=== PATIENT | male | born 1960 | race Caucasian/White ===

== ENCOUNTER 2017-04-18 22:16 | Observation (INO) | payer BC, OTHER ==
[~2017-04-18] VITALS: Ht 180.3 cm; Wt 75.0 kg
[2017-04-18 22:28] VITALS: BP 137/76; PULSE 107; RESP 18; TEMP 100; O2SAT 99
--- NOTE | 2017-04-18 22:29 | PD ---
HPI Chief Complaint: abdominal pain and fevers Time Seen by Provider: 22:23 Travel History International Travel<30 days: No Contact w/Intl Traveler<30days: No Traveled to known affect area: No History of Present Illness HPI 57-year-old male patient with 2 week history of a left scrotal cyst currently being evaluated by urology, presents to the ER today with a one-week history of fevers, body aches, not feeling well, and started having right sided abdominal discomfort with radiation down to the right scrotum. He denies any dysuria, vomiting, diarrhea, chest pains, shortness of breath, or other symptoms. He apparently had talked to his primary care physician and urologist and both his physicians do not think that this is related to the scrotal cyst. They think that he may have a viral syndrome or influenza. Modifying Factors: None Associated Signs & Symptoms: Cough, not feeling well, fevers, right sided abdominal pains with radiation to her right scrotum, body aches Risk Factors: Scrotal cyst recently diagnosed [facility] Social History Tobacco Use: No Allergies-Medications (Allergen,Severity, Reaction): Coded Allergies: No Known Allergies (Unverified , 04/18/17) Reported Meds & Prescriptions Reported Meds & Active Scripts Active Reported Doxycycline 40 Mg Cap 40 Mg PO DAILY Review of Systems Except as stated in HPI: all other systems reviewed are Neg Physical Exam Narrative GENERAL: Well-developed middle age white male patient currently in mild distress. Awake and oriented 3. SKIN: Focused skin assessment warm/dry. HEAD: Atraumatic. Normocephalic. EYES: Pupils equal and round. No scleral icterus. No injection or drainage. ENT: No nasal bleeding or discharge. Mucous membranes pink and moist. NECK: Trachea midline. No JVD. Supple. CARDIOVASCULAR: Regular rate and rhythm. No murmur appreciated. RESPIRATORY: No accessory muscle use. Clear to auscultation. Breath sounds equal bilaterally. GASTROINTESTINAL: Abdomen soft, mild right upper quadrant tenderness without guarding or rebound, nondistended. Hepatic and splenic margins not palpable. GENITOURINARY: Circumcised. Testes descended bilaterally without evidence of rotation. No lesions or erythema. No urethral discharge. MUSCULOSKELETAL: No obvious deformities. No clubbing. No cyanosis. No edema. NEUROLOGICAL: Awake and alert. No obvious cranial nerve deficits. Motor grossly within normal limits. Normal speech. PSYCHIATRIC: Appropriate mood and affect; insight and judgment normal. Data Data Last Documented VS Vital Signs Date Time Temp Pulse Resp B/P (MAP) Pulse Ox O2 Delivery O2 Flow Rate FiO2 04/18/17 23:49 80 18 119/70 (86) 99 04/18/17 22:28 100.0 Orders Orders Sepsis Workup Initiated (04/18/17 ) Complete Blood Count With Diff (04/18/17 22:23) Comprehensive Metabolic Panel (04/18/17 22:23) Lactic Acid Sepsis Protocol (04/18/17 22:23) Lipase (04/18/17 22:23) Urinalysis - C+S If Indicated (04/18/17 22:23) Influenzae A/B Antigen (04/18/17 22:23) Blood Culture (04/18/17 22:23) Chest, Single Ap (04/18/17 22:23) Blood Glucose (04/18/17 22:23) Ecg Monitoring (04/18/17 22:23) Iv Access Insert/Monitor (04/18/17 22:23) Oximetry (04/18/17 22:23) Oxygen Administration (04/18/17 22:23) Ct Abd/Pel W Iv Contrast(Rout) (04/18/17 22:23) Iohexol 350 Inj (Omnipaque 350 Inj) (04/18/17 23:50) Piperacil-Tazo 4.5 Gm Premix (Zosyn 4.5 (04/19/17 00:38) Admit Order (Ed Use Only) (04/19/17 00:47) Labs Laboratory Tests Test 04/18/17 22:40 White Blood Count 13.1 TH/MM3 Red Blood Count 3.47 MIL/MM3 Hemoglobin 11.0 GM/DL Hematocrit 33.5 % Mean Corpuscular Volume 96.5 FL Mean Corpuscular Hemoglobin 31.6 PG Mean Corpuscular Hemoglobin Concent 32.8 % Red Cell Distribution Width 11.8 % Platelet Count 464 TH/MM3 Mean Platelet Volume 8.3 FL Neutrophils (%) (Auto) 79.0 % Lymphocytes (%) (Auto) 9.4 % Monocytes (%) (Auto) 9.8 % Eosinophils (%) (Auto) 1.0 % Basophils (%) (Auto) 0.8 % Neutrophils # (Auto) 10.4 TH/MM3 Lymphocytes # (Auto) 1.2 TH/MM3 Monocytes # (Auto) 1.3 TH/MM3 Eosinophils # (Auto) 0.1 TH/MM3 Basophils # (Auto) 0.1 TH/MM3 CBC Comment AUTO DIFF Differential Comment AUTO DIFF CONFIRMED Platelet Estimate NORMAL Platelet Morphology Comment NORMAL Red Cell Morphology Comment NORMAL Urine Color STRAW Urine Turbidity CLEAR Urine pH 6.5 Urine Specific [place] 1.010 Urine Protein NEG mg/dL Urine Glucose (UA) NEG mg/dL Urine Ketones NEG mg/dL Urine Occult Blood TRACE Urine Nitrite NEG Urine Bilirubin NEG Urine Leukocyte Esterase NEG Urine RBC 0-3 /hpf Urine WBC 0-2 /hpf Urine Squamous Epithelial Cells 0-5 /hpf Urine Bacteria NONE /hpf Microscopic Urinalysis Comment CULT NOT INDICATED Blood Urea Nitrogen 16 MG/DL Creatinine 0.86 MG/DL Random Glucose 125 MG/DL Total Protein 7.6 GM/DL Albumin 2.1 GM/DL Calcium Level 8.0 MG/DL Alkaline Phosphatase 70 U/L Aspartate Amino Transf (AST/SGOT) 44 U/L Alanine Aminotransferase (ALT/SGPT) 27 U/L Total Bilirubin 0.5 MG/DL Sodium Level 135 MEQ/L Potassium Level 3.7 MEQ/L Chloride Level 101 MEQ/L Carbon Dioxide Level 25.8 MEQ/L Anion Gap 8 MEQ/L Estimat Glomerular Filtration Rate 91 ML/MIN Lactic Acid Level 0.8 mmol/L Lipase 85 U/L [facility] Medical Decision Making Medical Screen Exam Complete: Yes Emergency Medical Condition: Yes Medical Record Reviewed: Yes Interpretation(s) Laboratory Tests Test 04/18/17 22:40 White Blood Count 13.1 TH/MM3 (4.0-11.0) Red Blood Count 3.47 MIL/MM3 (4.50-5.90) Hemoglobin 11.0 GM/DL (13.0-17.0) Hematocrit 33.5 % (39.0-51.0) Platelet Count 464 TH/MM3 (150-450) Neutrophils (%) (Auto) 79.0 % (16.0-70.0) Monocytes (%) (Auto) 9.8 % (0.0-8.0) Neutrophils # (Auto) 10.4 TH/MM3 (1.8-7.7) Monocytes # (Auto) 1.3 TH/MM3 (0-0.9) Random Glucose 125 MG/DL (74-106) Albumin 2.1 GM/DL (3.4-5.0) Calcium Level 8.0 MG/DL (8.5-10.1) Aspartate Amino Transf (AST/SGOT) 44 U/L (15-37) Sodium Level 135 MEQ/L (136-145) Last 24 hours Impressions Chest X-Ray 04/18/172222 Signed Impressions: Service Date/Time: Tuesday, April 18, 2017 22:42 - CONCLUSION: 1. No active disease. Bob Recinos MD Abdomen/Pelvis CT 04/18/172222 Signed Impressions: Service Date/Time: Tuesday, April 18, 2017 23:53 - CONCLUSION: 1. No acute abnormality seen. 2. Scattered colonic diverticula without inflammatory change. 3. Large left renal cyst. 4. Mild perinephric stranding seen bilaterally a more prominent on the left. No hydronephrosis or acute changes are seen in the kidneys. 5. Multiple small subcentimeter hypodensities seen throughout the liver. These are nonspecific. They likely represent cysts or hemangiomas but are nonspecific. Michael Khan MD Differential Diagnosis Viral syndrome versus sepsis versus scrotal abscess versus UTI Narrative Course Lab work shows leukocytosis. UA did not show any signs of UTI. CAT scan however does show some left-sided perinephric stranding of uncertain etiology. I do not see an obvious cause of his current leukocytosis. Lactate is unremarkable. His influenza test is negative. He apparently has been on doxycycline for the past week already without improvement. At this point, concerned of leukocytosis, my plan would be to admit him as an observation. Zosyn was initiated in the ER and cultures have been drawn. Case was discussed with Dr. Starks for admission. Diagnosis Primary Impression: Fever Additional Impression: Sepsis Admitting Information Admitting Physician Requests: Admit Naman Chavarria MD Apr 18, 2017 22:29
[2017-04-18] MEDS ORDERED: DOXY1CAP74 PO (23:01)
--- NOTE | 2017-04-18 23:02 | RADRPT ---
EXAM DATE/TIME: 04/18/2017 22:42 [facility] COMPARISON: No previous studies available for comparison. INDICATIONS : Fever. MEDICAL HISTORY : None. SURGICAL HISTORY : None. ENCOUNTER: Initial ACUITY: 1 day PAIN SCORE: 5/10 LOCATION: Bilateral chest FINDINGS: A single view of the chest demonstrates the lungs to be symmetrically aerated without evidence of mas s, infiltrate or effusion. Probable calcified granuloma right upper lobe. The cardiomediastinal cont ours are unremarkable. Osseous structures are intact. CONCLUSION: 1. No active disease. Bob Recinos MD on April 18, 2017 at 22:57 Board Certified Radiologist. This report was verified electronically.
[2017-04-18 23:03] LABS: BILIRUBIN, URINE NEG (NEG); BLOOD, URINE TRACE (NEG); GLUCOSE,URINE NEG (NEG); KETONE, URINE NEG (NEG); NITRITE,URINE NEG (NEG); PH, URINE 6.5 (5.0-8.5); URINE LEUKOCYTE ESTERASE NEG (NEG)
[2017-04-18 23:05] LABS: AUTOMATED NEUTROPHIL # 10.4 TH/MM3 (1.8-7.7); BASOPHIL # 0.1 TH/MM3 (0-0.2); BASOPHIL % 0.8 % (0.0-2.0); EOSINOPHIL # 0.1 TH/MM3 (0-0.4); HEMATOCRIT 33.5 % (39.0-51.0); LYMPH % 9.4 % (9.0-44.0); LYMPHOCYTE # 1.2 TH/MM3 (1.0-4.8); MEAN CELL VOLUME 96.5 FL (80.0-100.0); MEAN CORPUSCULAR HEMOGLOBIN 31.6 PG (27.0-34.0); MEAN CORPUSCULAR HGB CONC 32.8 % (32.0-36.0); MEAN PLATELET VOLUME 8.3 FL (7.0-11.0); MONO % 9.8 % (0.0-8.0); MONOCYTE # 1.3 TH/MM3 (0-0.9); PLATELET COUNT 464 TH/MM3 (150-450); RED BLOOD COUNT 3.47 MIL/MM3 (4.50-5.90); RED CELL DISTRIBUTION WIDTH 11.8 % (11.6-17.2); WHITE BLOOD COUNT 13.1 TH/MM3 (4.0-11.0)
[2017-04-18 23:12] LABS: CHLORIDE 101 MEQ/L (98-107); RBC, URINE 0-3 /hpf (0-3); SODIUM (NA) 135 MEQ/L (136-145); SQUAMOUS EPITHELIAL CELL URINE 0-5 /hpf (0-5); URINE COLOR STRAW (YELLW/STRAW); WBC, URINE 0-2 /hpf (0-5)
[2017-04-18 23:15] LABS: ALBUMIN 2.1 GM/DL (3.4-5.0); BICARBONATE 25.8 MEQ/L (21.0-32.0); GLUCOSE,RANDOM 125 MG/DL (74-106)
[2017-04-18 23:16] LABS: BLOOD UREA NITROGEN 16 MG/DL (7-18)
[2017-04-18 23:18] LABS: ALT (GPT) 27 U/L (12-78); AST (GOT) 44 U/L (15-37); CREATININE 0.86 MG/DL (0.60-1.30); GLOMERULAR FILTRATION RATE 91 ML/MIN (>89)
[2017-04-18 23:20] LABS: TOTAL BILIRUBIN ADULT 0.5 MG/DL (0.2-1.0); TOTAL PROTEIN 7.6 GM/DL (6.4-8.2)
[2017-04-18 23:21] LABS: ALKALINE PHOSPHATASE 70 U/L (45-117)
[2017-04-18 23:49] VITALS: BP 119/70; PULSE 80; RESP 18; O2SAT 99
[2017-04-18] MEDS ORDERED: IOHEXOL 350 MG/ML 10 ML VIAL (for RAD DIAG) IVCONTRAST ONE (23:50)
--- NOTE | 2017-04-19 00:26 | RADRPT ---
EXAM DATE/TIME: 04/18/2017 23:53 [facility] COMPARISON: No previous studies available for comparison. INDICATIONS : Right lower abdominal and groin pain, fever IV CONTRAST: 96 cc Omnipaque 350 (iohexol) IV ORAL CONTRAST: No oral contrast ingested. RADIATION DOSE: 7.39 CTDIvol (mGy) MEDICAL HISTORY : None SURGICAL HISTORY : Cholecystectomy. Inguinal hernia repair. ENCOUNTER: Initial ACUITY: 1 day PAIN SCALE: 8/10 LOCATION: pelvis TECHNIQUE: Volumetric scanning of the abdomen and pelvis was performed. Using automated exposure control and ad justment of the mA and/or kV according to patient size, radiation dose was kept as low as reasonably achievable to obtain optimal diagnostic quality images. DICOM format image data is available electro nically for review and comparison. FINDINGS: LOWER LUNGS: The visualized lower lungs are clear. LIVER: There are several small subcentimeter hypodensities scattered throughout the liver. The gallbladder i s not seen. SPLEEN: Normal size without lesion. PANCREAS: Within normal limits. KIDNEYS: There is a 11.5 cm cyst in the superior aspect of the left kidney. There is also a smaller 0.6 cm cys t in the lateral mid left kidney. No hydronephrosis is seen on either side. There is some mild perine phric stranding seen on the left side and minimal perinephric stranding at the inferior right kidney. ADRENAL GLANDS: Within normal limits. VASCULAR: There is no aortic aneurysm. BOWEL/MESENTERY: The appendix appears normal. There are scattered colonic diverticula especially in the sigmoid region . ABDOMINAL WALL: Within normal limits. RETROPERITONEUM: There is no lymphadenopathy. BLADDER: No wall thickening or mass. REPRODUCTIVE: Within normal limits. INGUINAL: There is no lymphadenopathy or hernia. MUSCULOSKELETAL: Within normal limits for patient age. CONCLUSION: 1. No acute abnormality seen. 2. Scattered colonic diverticula without inflammatory change. 3. Large left renal cyst. 4. Mild perinephric stranding seen bilaterally a more prominent on the left. No hydronephrosis or acu te changes are seen in the kidneys. 5. Multiple small subcentimeter hypodensities seen throughout the liver. These are nonspecific. They likely represent cysts or hemangiomas but are nonspecific. Michael Khan MD on April 19, 2017 at 0:09 Board Certified Radiologist. This report was verified electronically.
[2017-04-19] MEDS ORDERED: PIPERACIL-TAZO 4.5 GM PREMIX 100 ML IV STA (00:38)
[2017-04-19 01:07] VITALS: BP 120/72; PULSE 78; RESP 17; TEMP 99.8; O2SAT 100
[2017-04-19] MEDS ORDERED: NALOXONE HCL 0.4 MG/ML AMP IV PUSH PRN (01:45)
[2017-04-19] MEDS ORDERED: SENNOSIDES 8.6 MG TAB PO PRN (01:45)
[2017-04-19] MEDS ORDERED: ONDANSETRON HCL 4 MG/2 ML VIAL IVP PRN (01:45)
[2017-04-19] MEDS ORDERED: MAGNESIUM HYDROXIDE SUSP 30 ML CUP PO PRN (01:45)
[2017-04-19] MEDS ORDERED: LACTULOSE SYRUP 20 GM/30 ML CUP PO PRN (01:45)
[2017-04-19] MEDS ORDERED: BISACODYL 10 MG SUPP RECTAL PRN (01:45)
[2017-04-19] MEDS ORDERED: SODIUM CHLORIDE 0.9% FLUSH 10 ML FLUSH IV FLUSH PRN (01:45)
[2017-04-19] MEDS: SODIUM CHLORIDE 0.9% FLUSH 10 ML FLUSH IV FLUSH SCH ×2 (01:52→21:44)
[2017-04-19] MEDS: SODIUM CHLOR 0.45% 1000 ML INJ 1,000 ML IV SCH ×2 (01:52→15:47)
[2017-04-19] MEDS: MORPHINE SULFATE 2 MG/ML INJ IV PUSH PRN ×3 (01:58→16:08)
[2017-04-19 02:00] VITALS: BP 116/81; PULSE 97; RESP 18; TEMP 101.3; O2SAT 97
[2017-04-19 08:00] VITALS: BP 116/72; PULSE 94; RESP 18; TEMP 101.4; O2SAT 96
[2017-04-19 08:09] LABS: AUTOMATED NEUTROPHIL # 8.5 TH/MM3 (1.8-7.7); BASOPHIL % 0.4 % (0.0-2.0); EOSINOPHIL # 0.2 TH/MM3 (0-0.4); EOSINOPHIL % 1.9 % (0.0-4.0); HEMATOCRIT 32.2 % (39.0-51.0); HEMOGLOBIN 10.8 GM/DL (13.0-17.0); LYMPH % 13.4 % (9.0-44.0); LYMPHOCYTE # 1.6 TH/MM3 (1.0-4.8); MEAN CELL VOLUME 97.1 FL (80.0-100.0); MEAN CORPUSCULAR HEMOGLOBIN 32.5 PG (27.0-34.0); MEAN CORPUSCULAR HGB CONC 33.5 % (32.0-36.0); MEAN PLATELET VOLUME 7.8 FL (7.0-11.0); MONO % 13.9 % (0.0-8.0); MONOCYTE # 1.7 TH/MM3 (0-0.9); NEUT % 70.4 % (16.0-70.0); PLATELET COUNT 460 TH/MM3 (150-450); RED BLOOD COUNT 3.31 MIL/MM3 (4.50-5.90)
--- NOTE | 2017-04-19 08:16 | RADRPT ---
EXAM DATE/TIME: 04/19/2017 07:18 [facility] COMPARISON: No previous studies available for comparison. INDICATIONS : Scrotal pain. MEDICAL HISTORY : Anxiety. Blood transfusion. SURGICAL HISTORY : Inguinal hernia repair. Cholecystectomy. ENCOUNTER: Initial ACUITY: 1 day PAIN SCORE: 1/10 LOCATION: Bilateral Scrotum. MEASUREMENTS: RIGHT TESTICLE: 4.5 x 3.2 x 2.8cm LEFT TESTICLE: 4.2 x 2.8 x 2.9cm FINDINGS: RIGHT TESTICLE: Homogeneous echotexture without intra or extratesticular mass. Blood flow is symmetric and within no rmal limits. No hydrocele or varicocele. Epididymis is within normal limits. LEFT TESTICLE: Homogeneous echotexture without intra or extratesticular mass. Blood flow is symmetric and within no rmal limits. No hydrocele or varicocele. The left epididymis appears mildly enlarged with respect to the right and demonstrates vascularity similar to the left testicle. There is a small left avascular appearing left testicular appendix and a small benign-appearing left epididymal head cyst. SCROTUM: Within normal limits. CONCLUSION: Findings within the left epididymis may reflect inflammation or infection. Correlate with the site of the patient's pain. There is a prior history of inguinal hernia repair, lobar, the side and timing o f the surgical repair are not noted. Findings within the epididymis could also be reactive if surgery is recent.. Shea Hernandez MD on April 19, 2017 at 8:08 Board Certified Radiologist. This report was verified electronically.
[2017-04-19 08:27] LABS: CHLORIDE 100 MEQ/L (98-107); SODIUM (NA) 136 MEQ/L (136-145)
[2017-04-19 08:32] LABS: ALBUMIN 2.1 GM/DL (3.4-5.0); BICARBONATE 27.6 MEQ/L (21.0-32.0); BLOOD UREA NITROGEN 13 MG/DL (7-18); CALCIUM 8.1 MG/DL (8.5-10.1); GLUCOSE,RANDOM 117 MG/DL (74-106)
[2017-04-19 08:35] LABS: ALT (GPT) 23 U/L (12-78); AST (GOT) 36 U/L (15-37); CREATININE 0.93 MG/DL (0.60-1.30); GLOMERULAR FILTRATION RATE 83 ML/MIN (>89)
[2017-04-19 08:37] LABS: TOTAL BILIRUBIN ADULT 0.9 MG/DL (0.2-1.0); TOTAL PROTEIN 7.5 GM/DL (6.4-8.2)
[2017-04-19 08:38] LABS: ALKALINE PHOSPHATASE 60 U/L (45-117)
[2017-04-19] MEDS: DOCUSATE SODIUM 50 MG/SENNA 8.6 MG TAB PO SCH ×2 (08:44→21:45)
[2017-04-19] MEDS: PIPERACIL-TAZO 3.375 GM PREMIX 50 ML IV SCH ×3 (09:12→21:44)
[2017-04-19 09:29] LABS: WESTERGREN SEDIMENTATION RATE GREATER THAN 140 mm/hr (0-20)
[2017-04-19 12:00] VITALS: BP 115/77; PULSE 81; RESP 16; TEMP 98; O2SAT 96
--- NOTE | 2017-04-19 12:34 | HHI.HP ---
History of Present Illness Service [facility] Primary Care Physician Selvin Lua, DO Admission Diagnosis sepsis/perinephric stranding Diagnoses: (1) Epididymal cyst Diagnosis: Principal (2) Sepsis Diagnosis: Principal (3) Fever Diagnosis: Principal History of Present Illness Patient presented for eval of fever for several days. He also is being followed by urology for epididmal cyst. He C/O H/A for several days as well. Review of Systems Constitutional: COMPLAINS OF: Fever Endocrine: DENIES: Heat/cold intolerance, Polydipsia, Polyuria, Polyphagia Eyes: DENIES: Blurred vision, Diplopia, Eye inflammation, Eye pain, Vision loss , Photosensitivity, Double Vision Ears, nose, mouth, throat: DENIES: Tinnitus, Hearing loss, Vertigo, Nasal discharge, Oral lesions, Throat pain, Hoarseness, Ear Pain, Running Nose, Epistaxis, Sinus Pain, Toothache, Odynophagia Respiratory: DENIES: Apneas, Cough, Snoring, Wheezing, Hemoptysis, Sputum production, Shortness of breath Cardiovascular: DENIES: Chest pain, Palpitations, Syncope, Dyspnea on Exertion , PND, Lower Extremity Edema, Orthopnea, Claudication Gastrointestinal: DENIES: Abdominal pain, Black stools, Bloody stools, Constipation, Diarrhea, Nausea, Vomiting, Difficulty Swallowing, Anorexia Genitourinary: DENIES: Sexual dysfunction, Urinary frequency, Urinary incontinence, Urgency, Hematuria, Dysuria, Nocturia, Penile Discharge, Testicular Pain, Testicular Swelling Musculoskeletal: DENIES: Joint pain, Muscle aches, Stiffness, Joint Swelling, Back pain, Neck pain Integumentary: DENIES: Abnormal pigmentation, Nail changes, Pruritus, Rash Hematologic/lymphatic: DENIES: Bruising, Lymphadenopathy Immunologic/allergic: DENIES: Eczema, Urticaria Neurologic: COMPLAINS OF: Headache Psychiatric: DENIES: Anxiety, Confusion, Mood changes, Depression, Hallucinations, Agitation, Suicidal Ideation, Homicidal Ideation, Delusions Past Family Social History Allergies: Coded Allergies: No Known Allergies (Unverified , 04/18/17) Past Medical History Epididmal cyst being monitored by Urology Past Surgical History Inguinal herniorrhaphy Reported Medications Current Medications Medications (Trade) Dose Ordered Sig/Vito Route Start Time Stop Time Status Last Admin Piperacillin Sod/ Tazobactam Sod 50 ml @ 100 mls/hr Q6H IV 04/19/17 08:00 04/19/17 09:12 Sodium Chloride 1,000 ml @ 75 mls/hr [id number] IV 04/19/17 01:34 04/19/17 01:52 (NS Flush) 2 ml UNSCH PRN IV FLUSH 04/19/17 01:45 (NS Flush) 2 ml BID IV FLUSH 04/19/17 09:00 04/19/17 01:52 (Zofran Inj) 4 mg Q6H PRN IVP 04/19/17 01:45 (Morphine Inj) 2 mg Q6HR PRN IV PUSH 04/19/17 01:45 04/19/17 09:40 (Narcan Inj) 0.4 mg UNSCH PRN IV PUSH 04/19/17 01:45 (Sera-Colace) 1 tab BID PO 04/19/17 09:00 04/19/17 08:44 (Milk Of Magnesia Liq) 30 ml Q12H PRN PO 04/19/17 01:45 (Senokot) 17.2 mg Q12H PRN PO 04/19/17 01:45 (Dulcolax Supp) 10 mg DAILY PRN RECTAL 04/19/17 01:45 (Lactulose Liq) 30 ml DAILY PRN PO 04/19/17 01:45 Family History Noncontributory to this event Social History Resides with family. Denies ETOH and cigs. Physical Exam Vital Signs Vital Signs Date Time Temp Pulse Resp B/P (MAP) Pulse Ox O2 Delivery O2 Flow Rate FiO2 04/19/17 08:00 101.4 94 18 116/72 (87) 96 04/19/17 02:00 101.3 97 18 116/81 (93) 97 04/19/17 01:18 04/19/17 01:07 99.8 78 17 120/72 (88) 100 Room Air 04/18/17 23:49 80 18 119/70 (86) 99 04/18/17 22:28 100.0 107 18 137/76 (96) 99 Physical Exam GENERAL: This is a well-nourished, well-developed patient, in no apparent distress. SKIN: No rashes, ecchymoses or lesions. Cool and dry. HEAD: Atraumatic. Normocephalic. No temporal or scalp tenderness. EYES: Pupils equal round and reactive. Extraocular motions intact. No scleral icterus. No injection or drainage. ENT: Nose without bleeding, purulent drainage or septal hematoma. Throat without erythema, tonsillar hypertrophy or exudate. Uvula midline. Airway patent. NECK: Trachea midline. No JVD or lymphadenopathy. Supple, nontender, no meningeal signs. CARDIOVASCULAR: Regular rate and rhythm without murmurs, gallops, or rubs. RESPIRATORY: Clear to auscultation. Breath sounds equal bilaterally. No wheezes , rales, or rhonchi. GASTROINTESTINAL: Abdomen soft, non-tender, nondistended. No hepato-splenomegaly , or palpable masses. No guarding. MUSCULOSKELETAL: Extremities without clubbing, cyanosis, or edema. No joint tenderness, effusion, or edema noted. No calf tenderness. Negative Homans sign bilaterally. NEUROLOGICAL: Awake and alert. Cranial nerves II through XII intact. Motor and sensory grossly within normal limits. Five out of 5 muscle strength in all muscle groups. Normal speech. Laboratory Laboratory Tests Test 04/18/17 22:40 04/19/17 07:47 White Blood Count 13.1 12.0 Red Blood Count 3.47 3.31 Hemoglobin 11.0 10.8 Hematocrit 33.5 32.2 Mean Corpuscular Volume 96.5 97.1 Mean Corpuscular Hemoglobin 31.6 32.5 Mean Corpuscular Hemoglobin Concent 32.8 33.5 Red Cell Distribution Width 11.8 12.0 Platelet Count 464 460 Mean Platelet Volume 8.3 7.8 Neutrophils (%) (Auto) 79.0 70.4 Lymphocytes (%) (Auto) 9.4 13.4 Monocytes (%) (Auto) 9.8 13.9 Eosinophils (%) (Auto) 1.0 1.9 Basophils (%) (Auto) 0.8 0.4 Neutrophils # (Auto) 10.4 8.5 Lymphocytes # (Auto) 1.2 1.6 Monocytes # (Auto) 1.3 1.7 Eosinophils # (Auto) 0.1 0.2 Basophils # (Auto) 0.1 0.0 CBC Comment AUTO DIFF DIFF FINAL Differential Comment AUTO DIFF CONFIRMED Platelet Estimate NORMAL Platelet Morphology Comment NORMAL Red Cell Morphology Comment NORMAL Urine Color STRAW Urine Turbidity CLEAR Urine pH 6.5 Urine Specific [place] 1.010 Urine Protein NEG Urine Glucose (UA) NEG Urine Ketones NEG Urine Occult Blood TRACE Urine Nitrite NEG Urine Bilirubin NEG Urine Leukocyte Esterase NEG Urine RBC 0-3 Urine WBC 0-2 Urine Squamous Epithelial Cells 0-5 Urine Bacteria NONE Microscopic Urinalysis Comment CULT NOT INDICATED Blood Urea Nitrogen 16 13 Creatinine 0.86 0.93 Random Glucose 125 117 Total Protein 7.6 7.5 Albumin 2.1 2.1 Calcium Level 8.0 8.1 Alkaline Phosphatase 70 60 Aspartate Amino Transf (AST/SGOT) 44 36 Alanine Aminotransferase (ALT/SGPT) 27 23 Total Bilirubin 0.5 0.9 Sodium Level 135 136 Potassium Level 3.7 4.0 Chloride Level 101 100 Carbon Dioxide Level 25.8 27.6 Anion Gap 8 8 Estimat Glomerular Filtration Rate 91 83 Lactic Acid Level 0.8 Lipase 85 Erythrocyte Sedimentation Rate GREATER THAN 140 Prostate Specific Antigen Screen 0.66 Date/Time Source Procedure Growth Status 04/18/17 22:45 Blood Peripheral Aerobic Blood Culture - Preliminary NO GROWTH IN 1 DAY Resulted 04/18/17 22:45 Blood Peripheral Anaerobic Blood Culture - Preliminary NO GROWTH IN 1 DAY Resulted 04/18/17 22:40 Nasal Washing Influenza Types A,B Antigen (ETHAN) - Final NEGATIVE FOR FLU A AND B ANTIGEN.... Complete Result Diagram: 04/19/17 0747 04/19/17 0747 Imaging Last Impressions Scrotum Ultrasound 04/19/17 0000 Signed Impressions: Service Date/Time: Wednesday, April 19, 2017 07:18 - CONCLUSION: Findings within the left epididymis may reflect inflammation or infection. Correlate with the site of the patient's pain. There is a prior history of inguinal hernia repair, lobar, the side and timing of the surgical repair are not noted. Findings within the epididymis could also be reactive if surgery is recent.. Shea Hernandez MD Chest X-Ray 04/18/172222 Signed Impressions: Service Date/Time: Tuesday, April 18, 2017 22:42 - CONCLUSION: 1. No active disease. Bob Recinos MD Abdomen/Pelvis CT 04/18/172222 Signed Impressions: Service Date/Time: Tuesday, April 18, 2017 23:53 - CONCLUSION: 1. No acute abnormality seen. 2. Scattered colonic diverticula without inflammatory change. 3. Large left renal cyst. 4. Mild perinephric stranding seen bilaterally a more prominent on the left. No hydronephrosis or acute changes are seen in the kidneys. 5. Multiple small subcentimeter hypodensities seen throughout the liver. These are nonspecific. They likely represent cysts or hemangiomas but are nonspecific. Michael Khan MD Course Remains febrile on antibiotics. Caprini VTE Risk Assessment Caprini VTE Risk Assessment: No/Low Risk (score <= 1) Caprini Risk Assessment Model Point Value = 1 Point Value = 2 Point Value = 3 Point Value = 5 Age 41-60 Minor surgery BMI > 25 kg/m2 Swollen legs Varicose veins or History of unexplained or recurrent spontaneous Oral contraceptives or hormone replacement Sepsis (< 1 month) Serious lung disease, including pneumonia (< 1 month) Abnormal pulmonary function Acute myocardial infarction Congestive heart failure (< 1 month) History of inflammatory bowel disease Medical patient at bed rest Age 61-74 Arthroscopic surgery Major open surgery (> 45 min) Laparoscopic surgery (> 45 min) Malignancy Confined to bed (> 72 hours) Immobilizing plaster cast Central venous access Age >= 75 History of VTE Family history of VTE Factor V Leiden Prothrombin [id number] Lupus anticoagulant Anticardiolipin antibodies Elevated serum homocysteine Heparin-induced thrombocytopenia Other congenital or acquired thrombophilia Stroke (< 1 month) Elective arthroplasty Hip, pelvis, or leg fracture Acute spinal cord injury (< 1 month) Prophylaxis Regimen Total Risk Factor Score Risk Level Prophylaxis Regimen 0-1 Low Early ambulation 2 Moderate Order ONE of the following: *Sequential Compression Device (SCD) *Heparin 5000 units SQ BID 3-4 Higher Order ONE of the following medications: *Heparin 5000 units SQ TID *Enoxaparin/Lovenox 40 mg SQ daily (WT < 150 kg, CrCl > 30 mL/min) *Enoxaparin/Lovenox 30 mg SQ daily (WT < 150 kg, CrCl > 10-29 mL/min) *Enoxaparin/Lovenox 30 mg SQ BID (WT < 150 kg, CrCl > 30 mL/min) AND/OR *Sequential Compression Device (SCD) 5 or more Highest Order ONE of the following medications: *Heparin 5000 units SQ TID (Preferred with Epidurals) *Enoxaparin/Lovenox 40 mg SQ daily (WT < 150 kg, CrCl > 30 mL/min) *Enoxaparin/Lovenox 30 mg SQ daily (WT < 150 kg, CrCl > 10-29 mL/min) *Enoxaparin/Lovenox 30 mg SQ BID (WT < 150 kg, CrCl > 30 mL/min) AND *Sequential Compression Device (SCD) Assessment and Plan Problem List: (1) Sepsis ICD Codes: A41.9 - Sepsis, unspecified organism Status: Acute Plan: Cont IV antibiotics and consult ID to assess (2) Fever ICD Codes: R50.9 - Fever, unspecified Status: Acute Plan: Cont antibiotics and consult ID (3) Epididymal cyst ICD Codes: N50.3 - Cyst of epididymis Status: Chronic Plan: F/U with Urology (4) Head ache ICD Codes: R51 - Headache Status: Acute Plan: Head CT Assessment and Plan Will cont IV antibiotics and F/U pending Cx. Will consult ID to assess and follow. Will get head [facility] to [facility] in light of fever. Discussed Condition With patient Discharge Planning Home Problem Qualifiers (1) Fever: Qualified Codes: R50.9 - Fever, unspecified (2) Head ache: Robert Pulliam Apr 19, 2017 12:34
[2017-04-19 16:00] VITALS: BP 115/75; PULSE 93; RESP 16; TEMP 99.1; O2SAT 96
--- NOTE | 2017-04-19 16:20 | RADRPT ---
EXAM DATE/TIME: 04/19/2017 15:36 [place] COMPARISON: No previous studies available for comparison. INDICATIONS : Fever, headaches, sepsis. RADIATION DOSE: 64.16 CTDIvol (mGy) MEDICAL HISTORY : Hernia, inguinal. SURGICAL HISTORY : Cholecystectomy. ENCOUNTER: Initial ACUITY: 1 day PAIN SCALE: 5/10 LOCATION: cranial TECHNIQUE: Multiple contiguous axial images were obtained of the head. Using automated exposure control and adj ustment of the mA and/or kV according to patient size, radiation dose was kept as low as reasonably a chievable to obtain optimal diagnostic quality images. DICOM format image data is available electro nically for review and comparison. FINDINGS: CEREBRUM: The ventricles are normal for age. No evidence of midline shift, mass lesion, hemorrhage or acute in farction. No extra-axial fluid collections are seen. POSTERIOR FOSSA: The cerebellum and brainstem are intact. The 4th ventricle is midline. The cerebellopontine angle i s unremarkable. EXTRACRANIAL: The visualized portion of the orbits is intact. SKULL: The calvaria is intact. No evidence of skull fracture. CONCLUSION: No acute intracranial findings. Yared Robertson MD on April 19, 2017 at 16:14 Board Certified Radiologist. This report was verified electronically.
--- NOTE | 2017-04-19 17:04 | MB ---
cc: KIMO ANDRE DATE OF CONSULTATION 04/19/17 HISTORY OF PRESENT ILLNESS Mr. Schultz is a pleasant 57-year-old male who presents with a history of one week of low grade on and off fever associated with left-sided scrotal pain. He was seen by Dr. Donaldson in the past who diagnosed him with epididymitis. He was initially started on doxycycline by his primary care provider after scrotal ultrasound determined some inflammation around the epididymis on a prior ultrasound. He denies any trauma. Denies any recent travel denies any insect bites or any family members being sick with the flu. He does complain of a left-sided headache with some photophobia. He had a CT scan in the emergency room on presentation demonstrating a large left renal cyst measuring 11 cm in size with some bilateral perinephric stranding. There is no hydronephrosis noted and no evidence of obstruction. He denies any recent cough or any voiding complaints. He does note some constipation. ALLERGIES NO KNOWN DRUG ALLERGIES MEDICATIONS Doxycycline. PAST MEDICAL HISTORY He denies any medical problems. PAST SURGICAL HISTORY Notable for inguinal hernia repair. SOCIAL HISTORY Denies smoking or drinking. FAMILY HISTORY Denies any significant family history. PHYSICAL EXAMINATION VITAL SIGNS: Temperature is 101.4, heart rate 94, respiratory rate 18, 116/72. GENERAL: Well-developed, well-nourished 57-year-old male in no acute distress. HEENT: Normocephalic, atraumatic. Pupils equal, round, regular react to light. Extraocular movements intact. NECK: Supple HEART: Regular rate and rhythm. LUNGS: Clear ABDOMEN: Soft, nontender, nondistended : Normal phallus, circumcised. Testes distended. Mild erythema of the left arnold-scrotum is noted with some tenderness at the left epididymitis. EXTREMITIES: No cyanosis, clubbing or edema. NEUROLOGIC: Cranial nerves II-XII are intact. PSYCHIATRIC: Generalized mood. LABORATORY DATA White count is 12.0, hemoglobin 10.8, hematocrit 32.4, platelet count is elevated at 460. Sodium 136, potassium 4.0, chloride 100, CO2 27.6, BUN of 13 creatinine 0.93, glucose of 117. Urinalysis is negative. IMAGING STUDIES Chest x-ray showed no evidence of any active disease. Again, scrotal ultrasound consistent with left epididymitis. ASSESSMENT AND PLAN A 57-year-old male with findings of left epididymitis and persistent fever over one week with elevated platelet count. Treat epididymitis and continue with IV antibiotics. Presently on Zosyn. Await CT scan of the head. doubt that fever is due to the etiology. CT scan with large left renal cyst which appears simple without evidence of hydronephrosis or obstruction. Continue IV antibiotics for now. Continue medical workup to determine source of fever. Thank you for the consult and allowing me to participate in the care of this patient. Kimo KHALIL/ /11:55 AM /4:46 PM
[2017-04-19 20:00] VITALS: BP 119/80; PULSE 99; RESP 18; TEMP 97.4; O2SAT 97
[2017-04-19] MEDS: ACETAMINOPHEN 325 MG TAB PO PRN (21:54)
[2017-04-20] VITALS (8 sets, daily range): BP systolic 100–140; BP diastolic 68–90; PULSE 80–102; RESP 18; TEMP 97.5–101.1; O2SAT 95–97
[2017-04-20] MEDS: PIPERACIL-TAZO 3.375 GM PREMIX 50 ML IV SCH ×4 (02:51→20:57)
[2017-04-20] MEDS: SODIUM CHLOR 0.45% 1000 ML INJ 1,000 ML IV SCH ×2 (04:52→18:25)
[2017-04-20] MEDS: SODIUM CHLORIDE 0.9% FLUSH 10 ML FLUSH IV FLUSH SCH ×2 (09:00→21:00)
[2017-04-20] MEDS: DOCUSATE SODIUM 50 MG/SENNA 8.6 MG TAB PO SCH ×2 (09:00→21:00)
[2017-04-20] MEDS: ACETAMINOPHEN 325 MG TAB PO PRN ×2 (09:31→21:00)
--- NOTE | 2017-04-20 11:42 | HHI.PR ---
Subjective Remarks Still running low grade fevers on IV antibiotics. Head CT was negative. Source of infection unknown and ID following. Objective Vital Signs Date Time Temp Pulse Resp B/P (MAP) Pulse Ox O2 Delivery O2 Flow Rate FiO2 04/20/17 08:00 100.8 102 18 116/75 (89) 96 04/20/17 04:40 97 04/20/17 00:00 99.3 82 18 100/68 (79) 96 04/19/17 20:00 97.4 99 18 119/80 (93) 97 04/19/17 16:00 99.1 93 16 115/75 (88) 96 04/19/17 12:00 98.0 81 16 115/77 (90) 96 I/O 04/19/17 04/19/17 04/19/17 04/20/17 04/20/17 04/20/17 07:00 15:00 23:00 07:00 15:00 23:00 Intake Total 445 ml 800 ml 650 ml 1278 ml Output Total 1450 ml Balance 445 ml 800 ml 650 ml -172 ml Intake Oral 100 ml 600 ml 580 ml IV Total 345 ml 800 ml 50 ml 698 ml Output Urine Total 1450 ml # Voids 3 # Bowel Movements 0 1 Result Diagram: 04/19/17 0747 04/19/17 0747 Imaging Last Impressions Scrotum Ultrasound 04/19/17 0000 Signed Impressions: Service Date/Time: Wednesday, April 19, 2017 07:18 - CONCLUSION: Findings within the left epididymis may reflect inflammation or infection. Correlate with the site of the patient's pain. There is a prior history of inguinal hernia repair, lobar, the side and timing of the surgical repair are not noted. Findings within the epididymis could also be reactive if surgery is recent.. Shea Hernandez MD Head CT 04/19/17 0000 Signed Impressions: Service Date/Time: Wednesday, April 19, 2017 15:36 - CONCLUSION: No acute intracranial findings. Yared Robertson MD Chest X-Ray 04/18/172222 Signed Impressions: Service Date/Time: Tuesday, April 18, 2017 22:42 - CONCLUSION: 1. No active disease. Bob Recinos MD Abdomen/Pelvis CT 04/18/172222 Signed Impressions: Service Date/Time: Tuesday, April 18, 2017 23:53 - CONCLUSION: 1. No acute abnormality seen. 2. Scattered colonic diverticula without inflammatory change. 3. Large left renal cyst. 4. Mild perinephric stranding seen bilaterally a more prominent on the left. No hydronephrosis or acute changes are seen in the kidneys. 5. Multiple small subcentimeter hypodensities seen throughout the liver. These are nonspecific. They likely represent cysts or hemangiomas but are nonspecific. Michael Khan MD Objective Remarks HEENT - AT/NC; Resp - CTA; CV - RRR without murmur, rub or gallop; Abd - soft and nontender with active BS; - mild scrotal discomfort to palpation; MS - No edema or deformities Medications and IVs Current Medications Medications (Trade) Dose Ordered Sig/Vito Route Start Time Stop Time Status Last Admin Piperacillin Sod/ Tazobactam Sod 50 ml @ 100 mls/hr Q6H IV 04/19/17 08:00 04/20/17 09:20 Sodium Chloride 1,000 ml @ 75 mls/hr [id number] IV 04/19/17 01:34 04/20/17 04:52 (NS Flush) 2 ml UNSCH PRN IV FLUSH 04/19/17 01:45 (NS Flush) 2 ml BID IV FLUSH 04/19/17 09:00 04/19/17 21:44 (Zofran Inj) 4 mg Q6H PRN IVP 04/19/17 01:45 (Morphine Inj) 2 mg Q6HR PRN IV PUSH 04/19/17 01:45 04/19/17 16:08 (Narcan Inj) 0.4 mg UNSCH PRN IV PUSH 04/19/17 01:45 (Sera-Colace) 1 tab BID PO 04/19/17 09:00 04/19/17 21:45 (Milk Of Magnesia Liq) 30 ml Q12H PRN PO 04/19/17 01:45 04/19/17 16:09 (Senokot) 17.2 mg Q12H PRN PO 04/19/17 01:45 (Dulcolax Supp) 10 mg DAILY PRN RECTAL 04/19/17 01:45 (Lactulose Liq) 30 ml DAILY PRN PO 04/19/17 01:45 (Tylenol) 650 mg Q4H PRN PO 04/19/17 12:30 04/20/17 09:31 Assessment and Plan Problem List: (1) Sepsis ICD Codes: A41.9 - Sepsis, unspecified organism Status: Acute Plan: Cont IV antibiotics and F/U ID recommendation (2) Fever ICD Codes: R50.9 - Fever, unspecified Status: Acute Plan: Cont antibiotics and F/U ID recommendations (3) Epididymal cyst ICD Codes: N50.3 - Cyst of epididymis Status: Chronic Plan: F/U with Urology (4) Head ache ICD Codes: R51 - Headache Status: Acute Plan: Negative Head CT and COLLINS improved Assessment and Plan Will cont IV antibiotics and F/U pending Cx. Will consult ID to assess and follow. Will get head CT to eval COLLINS in light of fever. Discussed Condition With Patient and spouse at bedside Discharge Planning Home Problem Qualifiers (1) Fever: Qualified Codes: R50.9 - Fever, unspecified (2) Head ache: Robert Pulliam Apr 20, 2017 11:42
--- NOTE | 2017-04-20 18:31 | PD.CONS ---
History of Present Illness Service ID CONSULT DR STONE Consult Requested By Primary Care Physician Selvin Lua DO Diagnoses: (1) Fever (2) Sepsis (3) Epididymal cyst (4) Head ache History of Present Illness PATIENT ADMITTED WITH FEVERS. HE STATES HE INITIALLY STARTED OUT WITH SCROTAL PAIN LEFT SIDED, AND SAW UROLOGY AND STARTED ON LEVAQUIN. HE TOOK ONE DOSE AND COULD NOT TOLERATE IT AND THUS WAS SWITCHED TO DOXYCYLINE. HE TOOK THE MEDICATION FOR A WEEK AND DID NOT FEEL BETTER. HE CONTINUED WITH HEADACHES AND FEVERS. HE DENIES NECK STIFFNESS. HE STARTED TO HAVE CONSTIPATION BUT THAT HAS SINCE RESOLVED. HE IS CURRENTLY ON ZOSYN . HE HAD LOW GRADE FEVER. ULTRASOUND AN OUT PATIENT SHOWED SOME INFLAMMATION AROUND THE EPIDIDYMIS. ID CONSULTED. Review of Systems Constitutional: COMPLAINS OF: Fever Gastrointestinal: COMPLAINS OF: Constipation (AFTER HE STARTED ON PAIN MEDS FROM HEADACHES ), Nausea, DENIES: Diarrhea, Vomiting Musculoskeletal: DENIES: Neck pain Immunologic/allergic: DENIES: Eczema Psychiatric: DENIES: Anxiety Past Family Social History Allergies: Coded Allergies: No Known Allergies (Unverified , 04/18/17) Past Medical History Past Medical History Epididmal cyst being monitored by Urology Past Surgical History Past Surgical History Inguinal herniorrhaphy Reported Medications DOXYCYLINE Family History NON CONTRIBUTORY Social History NONE SMOKER NO ETOH MOVED HERE RECENTLY FROM [place]. HE IS SEMI RETIRED FROM THE [employer] Physical Exam Vital Signs Vital Signs Date Time Temp Pulse Resp B/P (MAP) Pulse Ox O2 Delivery O2 Flow Rate FiO2 04/20/17 16:17 95 21 04/20/17 12:00 97.5 80 18 113/81 (92) 96 04/20/17 10:31 18 04/20/17 08:00 100.8 102 18 116/75 (89) 96 04/20/17 04:40 97 04/20/17 00:00 99.3 82 18 100/68 (79) 96 04/19/17 20:00 97.4 99 18 119/80 (93) 97 Physical Exam GENERAL: This is a well-nourished, well-developed patient, in no apparent distress. SKIN: No rashes, ecchymoses or lesions. Cool and dry. HEAD: Atraumatic. Normocephalic. No temporal or scalp tenderness. EYES: Pupils equal round and reactive. Extraocular motions intact. No scleral icterus. No injection or drainage. ENT: Nose without bleeding, purulent drainage or septal hematoma. Throat without erythema, tonsillar hypertrophy or exudate. Uvula midline. Airway patent. NECK: Trachea midline. No JVD or lymphadenopathy. Supple, nontender, no meningeal signs. CARDIOVASCULAR: Regular rate and rhythm without murmurs, gallops, or rubs. RESPIRATORY: Clear to auscultation. Breath sounds equal bilaterally. No wheezes , rales, or rhonchi. GASTROINTESTINAL: Abdomen soft, non-tender, nondistended. No hepato-splenomegaly , or palpable masses. No guarding. MUSCULOSKELETAL: Extremities without clubbing, cyanosis, or edema. No joint tenderness, effusion, or edema noted. No calf tenderness. Negative Homans sign bilaterally. NEUROLOGICAL: Awake and alert. Cranial nerves II through XII intact. Motor and sensory grossly within normal limits. Five out of 5 muscle strength in all muscle groups. Normal speech. Laboratory Date/Time Source Procedure Growth Status 04/18/17 22:45 Blood Peripheral Aerobic Blood Culture - Preliminary NO GROWTH IN 2 DAYS Resulted 04/18/17 22:45 Blood Peripheral Anaerobic Blood Culture - Preliminary NO GROWTH IN 2 DAYS Resulted 04/18/17 22:40 Nasal Washing Influenza Types A,B Antigen (ETHAN) - Final NEGATIVE FOR FLU A AND B ANTIGEN.... Complete Result Diagram: 04/19/17 0747 04/19/17 0747 Assessment and Plan Problem List: (1) Fever ICD Codes: R50.9 - Fever, unspecified Status: Acute Plan: WOULD ADD VANCOMYCIN AND CONTINUE ZOSYN PT CONTINUES TO HAVE FEVERS CT ABD FAIRLY BENIGN CULTURES HAVE BEEN NEGATIVE. WOULD WAIT UNTIL FEVERS NEGATIVE 24/48H PRIOR TO DC (2) Sepsis ICD Codes: A41.9 - Sepsis, unspecified organism Status: Acute (3) Epididymal cyst ICD Codes: N50.3 - Cyst of epididymis Status: Chronic (4) Head ache ICD Codes: R51 - Headache Status: Acute Problem Qualifiers (1) Fever: Qualified Codes: R50.9 - Fever, unspecified (2) Head ache: Kalee Abreu Apr 20, 2017 18:31
[2017-04-21] VITALS: BP 129/86; PULSE 79; RESP 20; TEMP 98.1; O2SAT 99
[2017-04-21] MEDS: PIPERACIL-TAZO 3.375 GM PREMIX 50 ML IV SCH ×2 (03:23→08:01)
[2017-04-21 08:00] VITALS: BP 140/76; PULSE 96; RESP 18; TEMP 100.3; O2SAT 99
[2017-04-21] MEDS: SODIUM CHLOR 0.45% 1000 ML INJ 1,000 ML IV SCH ×2 (08:06→20:47)
[2017-04-21] MEDS: DOCUSATE SODIUM 50 MG/SENNA 8.6 MG TAB PO SCH (08:07)
[2017-04-21] MEDS: SODIUM CHLORIDE 0.9% FLUSH 10 ML FLUSH IV FLUSH SCH ×2 (08:07→20:47)
--- NOTE | 2017-04-21 09:40 | HHI.IDPN ---
Subjective Subjective Remarks Persistent fever Muscles sore Headache better- when present left side and with scalp pain Past h/o Rheumatoid factor positive No past h/o PMR or Temporal arteritis. Antibiotics Zosyn Lines Peripheral Past Medical History Epididymal cyst Allergies: Coded Allergies: No Known Allergies (Unverified , 04/18/17) Review of Systems Constitutional Constitutional: Fever, Fatigue Objective . Vital Signs Date Time Temp Pulse Resp B/P (MAP) Pulse Ox O2 Delivery O2 Flow Rate FiO2 04/21/17 00:00 98.1 79 20 129/86 (100) 99 04/20/17 23:37 95 21 04/20/17 19:32 101.1 102 18 138/90 (106) 96 04/20/17 16:17 95 21 04/20/17 16:00 98.3 90 18 140/80 (100) 97 04/20/17 12:00 97.5 80 18 113/81 (92) 96 04/20/17 10:31 18 . Microbiology Date/Time Source Procedure Growth Status 04/18/17 22:45 Blood Peripheral Aerobic Blood Culture - Preliminary NO GROWTH IN 2 DAYS Resulted 04/18/17 22:45 Blood Peripheral Anaerobic Blood Culture - Preliminary NO GROWTH IN 2 DAYS Resulted 04/18/17 22:40 Blood Peripheral Aerobic Blood Culture - Preliminary NO GROWTH IN 2 DAYS Resulted 04/18/17 22:40 Blood Peripheral Anaerobic Blood Culture - Preliminary NO GROWTH IN 2 DAYS Resulted 04/18/17 22:40 Nasal Washing Influenza Types A,B Antigen (ETHAN) - Final NEGATIVE FOR FLU A AND B ANTIGEN.... Complete Physical Exam GENERAL: This is a well-nourished, well-developed patient, in no apparent distress. SKIN: No rashes, ecchymoses or lesions. Cool and dry. HEAD: Atraumatic. Normocephalic. No temporal or scalp tenderness. EYES: Pupils equal round and reactive. Extraocular motions intact. No scleral icterus. No injection or drainage. ENT: Nose without bleeding, purulent drainage or septal hematoma. Throat without erythema, tonsillar hypertrophy or exudate. Uvula midline. Airway patent. NECK: Trachea midline. No JVD or lymphadenopathy. Supple, nontender, no meningeal signs. CARDIOVASCULAR: Regular rate and rhythm without murmurs, gallops, or rubs. RESPIRATORY: Clear to auscultation. Breath sounds equal bilaterally. No wheezes , rales, or rhonchi. GASTROINTESTINAL: Abdomen soft, non-tender, nondistended. No hepato-splenomegaly , or palpable masses. No guarding. MUSCULOSKELETAL: Extremities without clubbing, cyanosis, or edema. No joint tenderness, effusion, or edema noted. No calf tenderness. Negative Homans sign bilaterally. NEUROLOGICAL: Awake and alert. Cranial nerves II through XII intact. Motor and sensory grossly within normal limits. Five out of 5 muscle strength in all muscle groups. Normal speech. Assessment & Plan Diagnosis: (1) Fever ICD Codes: R50.9 - Fever, unspecified Status: Acute Plan: Source uncertain at this time Cultures are negative Urology note reviewed and scrotal symptoms are resolved - so uncertain that this is the cause of the fever Will change antibiotics to Ceftriaxone Patient with high sed rate - will repeat today with CRP. Fever can be the symptom for Polymyalgia rheumatica / Temporal arteritis ( & pt has other symptoms like muscle soreness/ headache) If sed rate and CRP persistently high and fevers continue after change of antibiotics - may need to consider workup for that Also will check CMV/ EBV tests (2) Head ache ICD Codes: R51 - Headache Status: Acute (3) Epididymal cyst ICD Codes: N50.3 - Cyst of epididymis Status: Chronic Problem Qualifiers (1) Fever: Qualified Codes: R50.9 - Fever, unspecified (2) Head ache: Uzma Pina MD Apr 21, 2017 09:40
[2017-04-21] MEDS ORDERED: LACTOBACILLUS ACIDOPHILUS TAB PO ONE (10:00)
[2017-04-21 10:06] LABS: AUTOMATED NEUTROPHIL # 11.4 TH/MM3 (1.8-7.7); BASOPHIL % 0.2 % (0.0-2.0); EOSINOPHIL # 0.1 TH/MM3 (0-0.4); EOSINOPHIL % 0.9 % (0.0-4.0); HEMATOCRIT 32.9 % (39.0-51.0); HEMOGLOBIN 11.2 GM/DL (13.0-17.0); LYMPH % 7.6 % (9.0-44.0); MEAN CORPUSCULAR HEMOGLOBIN 32.7 PG (27.0-34.0); MEAN PLATELET VOLUME 7.5 FL (7.0-11.0); MONO % 9.4 % (0.0-8.0); MONOCYTE # 1.3 TH/MM3 (0-0.9); NEUT % 81.9 % (16.0-70.0); PLATELET COUNT 596 TH/MM3 (150-450); RED BLOOD COUNT 3.43 MIL/MM3 (4.50-5.90); RED CELL DISTRIBUTION WIDTH 12.5 % (11.6-17.2); WHITE BLOOD COUNT 13.8 TH/MM3 (4.0-11.0)
[2017-04-21] MEDS: cefTRIAXone INJ 1,000 MG in SODIUM CHLORIDE 0.9% INJ 100 ML IV SCH (10:09)
[2017-04-21 10:17] LABS: CHLORIDE 103 MEQ/L (98-107); SODIUM (NA) 136 MEQ/L (136-145)
[2017-04-21 10:22] LABS: CALCIUM 7.5 MG/DL (8.5-10.1)
[2017-04-21 10:23] LABS: ALBUMIN 1.9 GM/DL (3.4-5.0); BICARBONATE 26.3 MEQ/L (21.0-32.0); BLOOD UREA NITROGEN 10 MG/DL (7-18); GLUCOSE,RANDOM 171 MG/DL (74-106)
[2017-04-21 10:26] LABS: ALT (GPT) 21 U/L (12-78); AST (GOT) 28 U/L (15-37); GLOMERULAR FILTRATION RATE 86 ML/MIN (>89)
[2017-04-21 10:27] LABS: TOTAL BILIRUBIN ADULT 0.9 MG/DL (0.2-1.0); TOTAL PROTEIN 7.2 GM/DL (6.4-8.2)
[2017-04-21 10:29] LABS: ALKALINE PHOSPHATASE 57 U/L (45-117)
[2017-04-21 11:01] LABS: WESTERGREN SEDIMENTATION RATE 107 mm/hr (0-20)
[2017-04-21 11:05] LABS: BANDS 2 % (0-6); LYMPHOCYTES 6 % (9-44); MONOCYTES 6 % (0-8); MYELOCYTES 2 % (0-0); NEUTROPHIL # MANUAL DIFF 12.1 TH/MM3 (1.8-7.7); POLYS (SEG NEUTROPHILS) 84 % (16-70)
[2017-04-21 11:06] LABS: TOXIC GRANULATION 1+ (NORMAL)
[2017-04-21 12:00] VITALS: BP 128/78; PULSE 102; RESP 18; TEMP 99.9; O2SAT 100
--- NOTE | 2017-04-21 13:19 | HHI.PR ---
Subjective Remarks Seen this am, complains of loose stool, Still having fever. Objective Vital Signs Date Time Temp Pulse Resp B/P (MAP) Pulse Ox O2 Delivery O2 Flow Rate FiO2 04/21/17 12:00 99.9 102 18 128/78 (95) 100 04/21/17 08:00 100.3 96 18 140/76 (97) 99 04/21/17 00:00 98.1 79 20 129/86 (100) 99 04/20/17 23:37 95 21 04/20/17 19:32 101.1 102 18 138/90 (106) 96 04/20/17 16:17 95 21 04/20/17 16:00 98.3 90 18 140/80 (100) 97 I/O 04/20/17 04/20/17 04/20/17 04/21/17 04/21/17 04/21/17 07:00 15:00 23:00 07:00 15:00 23:00 Intake Total 1278 ml 100 ml 1600 ml 2080 ml Output Total 1450 ml 300 ml Balance -172 ml 100 ml 1600 ml 1780 ml Intake Oral 580 ml 600 ml 480 ml IV Total 698 ml 100 ml 1000 ml 1600 ml Output Urine Total 1450 ml 300 ml # Voids 3 # Bowel Movements 1 1 Result Diagram: 04/21/17 0950 04/21/17 0950 Objective Remarks GENERAL: This is a well-nourished, well-developed patient, in no apparent distress. SKIN: No rashes, ecchymoses or lesions. Cool and dry. HEAD: Atraumatic. Normocephalic. No temporal or scalp tenderness. EYES: Pupils equal round and reactive. Extraocular motions intact. No scleral icterus. No injection or drainage. ENT: Nose without bleeding, purulent drainage or septal hematoma. Throat without erythema, tonsillar hypertrophy or exudate. Uvula midline. Airway patent. NECK: Trachea midline. No JVD or lymphadenopathy. Supple, nontender, no meningeal signs. CARDIOVASCULAR: Regular rate and rhythm without murmurs, gallops, or rubs. RESPIRATORY: Clear to auscultation. Breath sounds equal bilaterally. No wheezes , rales, or rhonchi. GASTROINTESTINAL: Abdomen soft, non-tender, hyperactive BS. MUSCULOSKELETAL: Extremities without clubbing, cyanosis, or edema. No joint tenderness, effusion, or edema noted. No calf tenderness. Negative Homans sign bilaterally. NEUROLOGICAL: Awake and alert. Cranial nerves II through XII intact. Motor and sensory grossly within normal limits. Five out of 5 muscle strength in all muscle groups. Normal speech. Medications and IVs Current Medications Medications (Trade) Dose Ordered Sig/Vito Route Start Time Stop Time Status Last Admin Sodium Chloride 1,000 ml @ 75 mls/hr [id number] IV 04/19/17 01:34 04/21/17 08:06 (NS Flush) 2 ml UNSCH PRN IV FLUSH 04/19/17 01:45 (NS Flush) 2 ml BID IV FLUSH 04/19/17 09:00 04/19/17 21:44 (Zofran Inj) 4 mg Q6H PRN IVP 04/19/17 01:45 (Morphine Inj) 2 mg Q6HR PRN IV PUSH 04/19/17 01:45 04/19/17 16:08 (Narcan Inj) 0.4 mg UNSCH PRN IV PUSH 04/19/17 01:45 (Sera-Colace) 1 tab BID PO 04/19/17 09:00 04/19/17 21:45 (Milk Of Magnesia Liq) 30 ml Q12H PRN PO 04/19/17 01:45 04/19/17 16:09 (Senokot) 17.2 mg Q12H PRN PO 04/19/17 01:45 (Dulcolax Supp) 10 mg DAILY PRN RECTAL 04/19/17 01:45 (Lactulose Liq) 30 ml DAILY PRN PO 04/19/17 01:45 (Tylenol) 650 mg Q4H PRN PO 04/19/17 12:30 04/20/17 21:00 (Metamucil Smooth Texture Sf/ Gf Pkt) 1 pkt DAILY PO 04/22/17 09:00 Ceftriaxone Sodium 1000 mg/ Sodium Chloride 100 ml @ 200 mls/hr Q24H IV 04/21/17 11:00 04/21/17 10:09 Assessment and Plan Problem List: (1) Sepsis ICD Codes: A41.9 - Sepsis, unspecified organism Status: Acute (2) Epididymal cyst ICD Codes: N50.3 - Cyst of epididymis Status: Chronic (3) Head ache ICD Codes: R51 - Headache Status: Acute Assessment and Plan Continues to have fever, Seen by John, added. Complains of loose stool will add probiotic and Metamucil. Hypokalemia will add 20 meq today He has roommate complaints of not sleeping. Request for private room, however unit is full. Problem Qualifiers (1) Head ache: Jessica Wilkins Apr 21, 2017 13:19
[2017-04-21 13:40] LABS: RHEUMATOID FACTOR SCREEN NEGATIVE (NEGATIVE)
[2017-04-21] MEDS ORDERED: POTASSIUM CHLORIDE 20 MEQ CONTROLLED RELEASE TAB PO ONE (14:00)
[2017-04-21 16:00] VITALS: BP 143/89; PULSE 103; RESP 16; TEMP 101; O2SAT 99
[2017-04-21] MEDS: ACETAMINOPHEN 325 MG TAB PO PRN (16:43)
[2017-04-21 20:00] VITALS: BP 136/86; PULSE 96; RESP 18; TEMP 99.2; O2SAT 98
[2017-04-21 22:22] LABS: AUTOMATED NEUTROPHIL # 9.6 TH/MM3 (1.8-7.7); BASOPHIL # 0.1 TH/MM3 (0-0.2); BASOPHIL % 0.5 % (0.0-2.0); EOSINOPHIL # 0.1 TH/MM3 (0-0.4); EOSINOPHIL % 0.5 % (0.0-4.0); HEMATOCRIT 36.6 % (39.0-51.0); HEMOGLOBIN 12.1 GM/DL (13.0-17.0); LYMPH % 11.2 % (9.0-44.0); LYMPHOCYTE # 1.4 TH/MM3 (1.0-4.8); MEAN CELL VOLUME 96.9 FL (80.0-100.0); MEAN PLATELET VOLUME 7.3 FL (7.0-11.0); MONO % 9.2 % (0.0-8.0); MONOCYTE # 1.1 TH/MM3 (0-0.9); NEUT % 78.6 % (16.0-70.0); PLATELET COUNT 660 TH/MM3 (150-450); RED BLOOD COUNT 3.78 MIL/MM3 (4.50-5.90); RED CELL DISTRIBUTION WIDTH 12.4 % (11.6-17.2); WHITE BLOOD COUNT 12.3 TH/MM3 (4.0-11.0)
[2017-04-22] VITALS: BP 157/98; PULSE 106; RESP 20; TEMP 98.3; O2SAT 98
[2017-04-22 01:00] LABS: BILIRUBIN, URINE NEG (NEG); BLOOD, URINE NEG (NEG); GLUCOSE,URINE NEG (NEG); KETONE, URINE TRACE mg/dL (NEG); NITRITE,URINE NEG (NEG); URINE LEUKOCYTE ESTERASE NEG (NEG)
[2017-04-22 01:09] LABS: URINE COLOR YELLOW (YELLW/STRAW)
[2017-04-22 01:10] LABS: MUCUS URINE OCC /lpf (OCC); SQUAMOUS EPITHELIAL CELL URINE 0-5 /hpf (0-5)
[2017-04-22 01:12] LABS: AMORPHOUS SEDIMENT, URINE SMALL
[2017-04-22 07:28] LABS: AUTOMATED NEUTROPHIL # 7.6 TH/MM3 (1.8-7.7); BASOPHIL % 0.3 % (0.0-2.0); EOSINOPHIL % 0.3 % (0.0-4.0); HEMATOCRIT 34.6 % (39.0-51.0); HEMOGLOBIN 11.2 GM/DL (13.0-17.0); LYMPH % 11.6 % (9.0-44.0); LYMPHOCYTE # 1.2 TH/MM3 (1.0-4.8); MEAN CELL VOLUME 95.6 FL (80.0-100.0); MEAN CORPUSCULAR HGB CONC 32.5 % (32.0-36.0); MEAN PLATELET VOLUME 7.7 FL (7.0-11.0); MONO % 11.5 % (0.0-8.0); MONOCYTE # 1.1 TH/MM3 (0-0.9); NEUT % 76.3 % (16.0-70.0); PLATELET COUNT 636 TH/MM3 (150-450); RED BLOOD COUNT 3.62 MIL/MM3 (4.50-5.90); RED CELL DISTRIBUTION WIDTH 12.1 % (11.6-17.2); WHITE BLOOD COUNT 9.9 TH/MM3 (4.0-11.0)
[2017-04-22 07:43] LABS: CALCIUM 8.1 MG/DL (8.5-10.1)
[2017-04-22 07:44] LABS: CREATININE 0.8 MG/DL (0.60-1.30)
[2017-04-22 08:00] VITALS: BP 121/71; PULSE 111; RESP 18; TEMP 99.7; O2SAT 96
--- NOTE | 2017-04-22 08:56 | HHI.PR ---
Subjective Remarks Voices he had a rough night, episode of high B/P Objective Vital Signs Date Time Temp Pulse Resp B/P (MAP) Pulse Ox O2 Delivery O2 Flow Rate FiO2 04/22/17 00:00 98.3 106 20 157/98 (117) 98 04/21/17 20:00 99.2 96 18 136/86 (103) 98 04/21/17 16:00 101.0 103 16 143/89 (107) 99 04/21/17 12:00 99.9 102 18 128/78 (95) 100 I/O 04/21/17 04/21/17 04/21/17 04/22/17 04/22/17 04/22/17 07:00 15:00 23:00 07:00 15:00 23:00 Intake Total 2080 ml 350 ml 580 ml Output Total 300 ml 800 ml Balance 1780 ml 350 ml -220 ml Intake Oral 480 ml 580 ml IV Total 1600 ml 350 ml Output Urine Total 300 ml 800 ml # Voids 3 1 # Bowel Movements 1 1 0 Result Diagram: 04/22/1771404/22/17714 Objective Remarks GENERAL: This is a well-nourished, well-developed patient, in no apparent distress. SKIN: No rashes, ecchymoses or lesions. Cool and dry. HEAD: Atraumatic. Normocephalic. No temporal or scalp tenderness. EYES: Pupils equal round and reactive. Extraocular motions intact. No scleral icterus. No injection or drainage. ENT: Nose without bleeding, purulent drainage or septal hematoma. Throat without erythema, tonsillar hypertrophy or exudate. Uvula midline. Airway patent. NECK: Trachea midline. No JVD or lymphadenopathy. Supple, nontender, no meningeal signs. CARDIOVASCULAR: Regular rate and rhythm without murmurs, gallops, or rubs. RESPIRATORY: Clear to auscultation. Breath sounds equal bilaterally. No wheezes , rales, or rhonchi. GASTROINTESTINAL: Abdomen soft, non-tender, BS + MUSCULOSKELETAL: Extremities without clubbing, cyanosis, or edema. No joint tenderness, effusion, or edema noted. No calf tenderness. Negative Homans sign bilaterally. NEUROLOGICAL: Awake and alert. Cranial nerves II through XII intact. Motor and sensory grossly within normal limits. Five out of 5 muscle strength in all muscle groups. Normal speech. Assessment and Plan Problem List: (1) Sepsis ICD Codes: A41.9 - Sepsis, unspecified organism Status: Acute (2) Epididymal cyst ICD Codes: N50.3 - Cyst of epididymis Status: Chronic (3) Head ache ICD Codes: R51 - Headache Status: Acute Assessment and Plan Being followed by ID, voices he has fever last night, but he was given Tylenol. Negative work up thus far for continued fevers. ID following. Antibiotics changed to Rocephin. Denies scalp pain, muscle pain or abdominal pain today. he voices he is feeling pretty good. ID considering Temporal arteritis vs rheumatica. He does have some concern about HIV, son is a IV drug user for many years and patient voices that he has found some needles on several occasions with needle sticks. His son has refused to be tested for HIV. Will screen while he is here. Stool are formed today. Problem Qualifiers (1) Head ache: Jessica Wilkins Apr 22, 2017 08:56
[2017-04-22] MEDS: PSYLLIUM FIBER SF/GF 6 GM POWD PKT PO SCH (09:00)
[2017-04-22] MEDS: SODIUM CHLORIDE 0.9% FLUSH 10 ML FLUSH IV FLUSH SCH ×2 (09:38→21:00)
[2017-04-22] MEDS: SODIUM CHLOR 0.45% 1000 ML INJ 1,000 ML IV SCH (09:38)
[2017-04-22] MEDS: cefTRIAXone INJ 1,000 MG in SODIUM CHLORIDE 0.9% INJ 100 ML IV SCH (11:14)
[2017-04-22 12:00] VITALS: BP 128/88; PULSE 97; RESP 18; TEMP 98.2; O2SAT 99
--- NOTE | 2017-04-22 15:34 | ECHRPT ---
Indication: CONCLUSIONS Normal left ventricular size. Wall thickness is normal. The left ventricular systolic function is grossly normal on limited imaging. Trace mitral valve regurgitation. There is mild tricuspid valve regurgitation. The estimated pulmonary arterial pressure is 31.5 mmHg. BP: 157 / 98 HR: Rhythm: Sinus MEASUREMENTS (Male / Female) Normal Values Technical Quality:Fair 2D ECHO LV Diastolic Diameter PLAX 5.3 cm 4.2 - 5.9 / 3.9 - 5.3 cm LV Systolic Diameter PLAX 3.3 cm IVS Diastolic Thickness 0.9 cm 0.6 - 1.0 / 0.6 - 0.9 cm LVPW Diastolic Thickness 0.9 cm 0.6 - 1.0 / 0.6 - 0.9 cm LV Relative Wall Thickness 0.3 RV Internal Dim ED PLAX 2.9 cm LVOT Diameter 2.3 cm Aortic Root Diameter 3.3 cm LA Systolic Diameter LX 3.1 cm 3.0 - 4.0 / 2.7 - 3.8 cm M-MODE AV Cusp Separation MM 2.7 cm DOPPLER AV Peak Velocity 143.0 cm/s AV Peak Gradient 8.2 mmHg AV Mean Gradient 4.0 mmHg AV Velocity Time Integral 21.1 cm LVOT Peak Velocity 95.5 cm/s LVOT Peak Gradient 3.6 mmHg LVOT Velocity Time Integral 16.5 cm AV Area Cont Eq vti 3.2 cm AV Area Cont Eq pk 2.8 cm Mitral E Point Velocity 87.4 cm/s Mitral A Point Velocity 82.4 cm/s Mitral E to A Ratio 1.1 LV E' Lateral Velocity 8.2 cm/s Mitral E to LV E' Lateral Ratio 10.7 LV E' Septal Velocity 8.5 cm/s Mitral E to LV E' Septal Ratio 10.3 TR Peak Velocity 232.0 cm/s TR Peak Gradient 21.5 mmHg Right Atrial Pressure 10.0 mmHg Pulmonary Artery Systolic Pressu 31.5 mmHg Right Ventricular Systolic Press 31.5 mmHg PV Peak Velocity 67.7 cm/s PV Peak Gradient 1.8 mmHg FINDINGS LEFT VENTRICLE Normal left ventricular size. Wall thickness is normal. The left ventricular systolic function is grossly normal on limited imaging. RIGHT VENTRICLE Normal right ventricular size and systolic function. LEFT ATRIUM The left atrial size is normal. RIGHT ATRIUM The right atrial size is normal. ATRIAL SEPTUM No atrial level shunt is demonstrated by color flow Doppler interrogation. AORTA The aortic root and proximal ascending aorta are normal in size on limited imaging. MITRAL VALVE Trace mitral valve regurgitation. AORTIC VALVE Trileaflet aortic valve. No aortic valve stenosis or regurgitation. TRICUSPID VALVE There is mild tricuspid valve regurgitation. The estimated pulmonary arterial pressure is 31.5 mmHg. PULMONARY VALVE No pulmonary valve regurgitation or stenosis. VESSELS The inferior vena cava is normal in size. PERICARDIUM No pericardial effusion. Harjinder Jiménez MD (Electronically Signed) Final Date:22 April 2017 15:33
[2017-04-22 16:00] VITALS: BP 124/80; PULSE 111; RESP 18; TEMP 101.1; O2SAT 98
[2017-04-22] MEDS: ACETAMINOPHEN 325 MG TAB PO PRN (16:18)
--- NOTE | 2017-04-22 17:50 | HHI.IDPN ---
Subjective Subjective Remarks Persistent fever Muscles sore Headache better- when present left side and with scalp pain Past h/o Rheumatoid factor positive No past h/o PMR or Temporal arteritis. Antibiotics Zosyn Lines Peripheral Past Medical History Epididymal cyst Allergies: Coded Allergies: No Known Allergies (Unverified , 04/18/17) Review of Systems Constitutional Constitutional: Fever, Fatigue Objective . Vital Signs Date Time Temp Pulse Resp B/P (MAP) Pulse Ox O2 Delivery O2 Flow Rate FiO2 04/22/17 16:00 101.1 111 18 124/80 (95) 98 04/22/17 12:00 99 Room Air 04/22/17 12:00 98.2 97 18 128/88 (101) 99 04/22/17 08:00 96 Room Air 04/22/17 08:00 99.7 111 18 121/71 (88) 96 04/22/17 00:00 98.3 106 20 157/98 (117) 98 04/21/17 20:00 99.2 96 18 136/86 (103) 98 04/22/17 04/22/17 04/23/17 15:00 23:00 07:00 Intake Total 100 ml Output Total 1750 ml Balance -1650 ml IV Total 100 ml Output Urine Total 1750 ml . Laboratory Tests Test 04/21/17 09:50 04/21/17 22:15 04/22/17 07:15 White Blood Count 13.8 TH/MM3 12.3 TH/MM3 9.9 TH/MM3 Red Blood Count 3.43 MIL/MM3 3.78 MIL/MM3 3.62 MIL/MM3 Hemoglobin 11.2 GM/DL 12.1 GM/DL 11.2 GM/DL Hematocrit 32.9 % 36.6 % 34.6 % Mean Corpuscular Volume 96.0 FL 96.9 FL 95.6 FL Mean Corpuscular Hemoglobin 32.7 PG 32.0 PG 31.0 PG Mean Corpuscular Hemoglobin Concent 34.0 % 33.0 % 32.5 % Red Cell Distribution Width 12.5 % 12.4 % 12.1 % Platelet Count 596 TH/MM3 660 TH/MM3 636 TH/MM3 Mean Platelet Volume 7.5 FL 7.3 FL 7.7 FL Neutrophils (%) (Auto) 81.9 % 78.6 % 76.3 % Lymphocytes (%) (Auto) 7.6 % 11.2 % 11.6 % Monocytes (%) (Auto) 9.4 % 9.2 % 11.5 % Eosinophils (%) (Auto) 0.9 % 0.5 % 0.3 % Basophils (%) (Auto) 0.2 % 0.5 % 0.3 % Neutrophils # (Auto) 11.4 TH/MM3 9.6 TH/MM3 7.6 TH/MM3 Lymphocytes # (Auto) 1.0 TH/MM3 1.4 TH/MM3 1.2 TH/MM3 Monocytes # (Auto) 1.3 TH/MM3 1.1 TH/MM3 1.1 TH/MM3 Eosinophils # (Auto) 0.1 TH/MM3 0.1 TH/MM3 0.0 TH/MM3 Basophils # (Auto) 0.0 TH/MM3 0.1 TH/MM3 0.0 TH/MM3 CBC Comment AUTO DIFF AUTO DIFF DIFF FINAL Differential Total Cells Counted 100 Neutrophils % (Manual) 84 % Band Neutrophils % 2 % Lymphocytes % 6 % Monocytes % 6 % Neutrophils # (Manual) 12.1 TH/MM3 Myelocytes 2 % Differential Comment FINAL DIFF MANUAL AUTO DIFF CONFIRMED Toxic Granulation 1+ Platelet Estimate HIGH HIGH Platelet Morphology Comment NORMAL NORMAL Erythrocyte Sedimentation Rate 107 mm/hr Red Cell Morphology Comment NORMAL Laboratory Tests Test 04/21/17 09:50 04/22/17 07:15 Blood Urea Nitrogen 10 MG/DL 7 MG/DL Creatinine 0.90 MG/DL 0.80 MG/DL Random Glucose 171 MG/DL 132 MG/DL Total Protein 7.2 GM/DL Albumin 1.9 GM/DL Calcium Level 7.5 MG/DL 8.1 MG/DL Alkaline Phosphatase 57 U/L Aspartate Amino Transf (AST/SGOT) 28 U/L Alanine Aminotransferase (ALT/SGPT) 21 U/L Total Bilirubin 0.9 MG/DL Sodium Level 136 MEQ/L 136 MEQ/L Potassium Level 3.4 MEQ/L 3.9 MEQ/L Chloride Level 103 MEQ/L 103 MEQ/L Carbon Dioxide Level 26.3 MEQ/L 25.0 MEQ/L Anion Gap 7 MEQ/L 8 MEQ/L Estimat Glomerular Filtration Rate 86 ML/MIN 99 ML/MIN C-Reactive Protein 18.00 MG/DL Physical Exam GENERAL: This is a well-nourished, well-developed patient, in no apparent distress. SKIN: No rashes, ecchymoses or lesions. Cool and dry. HEAD: Atraumatic. Normocephalic. No temporal or scalp tenderness. EYES: Pupils equal round and reactive. Extraocular motions intact. No scleral icterus. No injection or drainage. ENT: Nose without bleeding, purulent drainage or septal hematoma. Throat without erythema, tonsillar hypertrophy or exudate. Uvula midline. Airway patent. NECK: Trachea midline. No JVD or lymphadenopathy. Supple, nontender, no meningeal signs. CARDIOVASCULAR: Regular rate and rhythm without murmurs, gallops, or rubs. RESPIRATORY: Clear to auscultation. Breath sounds equal bilaterally. No wheezes , rales, or rhonchi. GASTROINTESTINAL: Abdomen soft, non-tender, nondistended. No hepato-splenomegaly , or palpable masses. No guarding. MUSCULOSKELETAL: Extremities without clubbing, cyanosis, or edema. No joint tenderness, effusion, or edema noted. No calf tenderness. Negative Homans sign bilaterally. NEUROLOGICAL: Awake and alert. Cranial nerves II through XII intact. Motor and sensory grossly within normal limits. Five out of 5 muscle strength in all muscle groups. Normal speech. Assessment & Plan Diagnosis: (1) Fever ICD Codes: R50.9 - Fever, unspecified Status: Acute Plan: STOP ANTIBIOTICS ETIOLOGY LIKELY RHEUMATOLOGICAL HAVE PT FU IN 1 WEEK WITH OUR OFFICE AND HE SHOULD BE SEEN BY RHEUMATOLOGY D/W DR STONE (2) Sepsis ICD Codes: A41.9 - Sepsis, unspecified organism Status: Acute (3) Epididymal cyst ICD Codes: N50.3 - Cyst of epididymis Status: Chronic (4) Head ache ICD Codes: R51 - Headache Status: Acute Problem Qualifiers (1) Fever: Qualified Codes: R50.9 - Fever, unspecified (2) Head ache: Kalee Abreu Apr 22, 2017 17:50
[2017-04-22 20:00] VITALS: BP 144/90; PULSE 89; RESP 20; TEMP 98; O2SAT 99
[2017-04-22 23:58] VITALS: BP 111/65; PULSE 108; RESP 20; TEMP 97.3; O2SAT 98
[2017-04-23] MEDS: PSYLLIUM FIBER SF/GF 6 GM POWD PKT PO SCH (09:00)
[2017-04-23] MEDS: SODIUM CHLORIDE 0.9% FLUSH 10 ML FLUSH IV FLUSH SCH (09:00)
[2017-04-23 09:31] VITALS: BP 117/71; PULSE 89; RESP 20; TEMP 98.8; O2SAT 95
[2017-04-23 11:50] VITALS: BP 120/73; PULSE 87; RESP 20; TEMP 98.3; O2SAT 94
--- NOTE | 2017-04-23 18:37 | HHI.DS ---
Discharge Summary Admission Date Apr 19, 2017 at 00:51 Admitting Diagnosis sepsis/perinephric stranding CBC/BMP: 04/22/17 0715 04/22/17 0715 Significant Findings Laboratory Tests Test 04/21/17 09:50 04/21/17 22:15 04/22/17 00:30 04/22/17 07:15 White Blood Count 13.8 TH/MM3 (4.0-11.0) 12.3 TH/MM3 (4.0-11.0) Red Blood Count 3.43 MIL/MM3 (4.50-5.90) 3.78 MIL/MM3 (4.50-5.90) 3.62 MIL/MM3 (4.50-5.90) Hemoglobin 11.2 GM/DL (13.0-17.0) 12.1 GM/DL (13.0-17.0) 11.2 GM/DL (13.0-17.0) Hematocrit 32.9 % (39.0-51.0) 36.6 % (39.0-51.0) 34.6 % (39.0-51.0) Platelet Count 596 TH/MM3 (150-450) 660 TH/MM3 (150-450) 636 TH/MM3 (150-450) Neutrophils (%) (Auto) 81.9 % (16.0-70.0) 78.6 % (16.0-70.0) 76.3 % (16.0-70.0) Lymphocytes (%) (Auto) 7.6 % (9.0-44.0) Monocytes (%) (Auto) 9.4 % (0.0-8.0) 9.2 % (0.0-8.0) 11.5 % (0.0-8.0) Neutrophils # (Auto) 11.4 TH/MM3 (1.8-7.7) 9.6 TH/MM3 (1.8-7.7) Monocytes # (Auto) 1.3 TH/MM3 (0-0.9) 1.1 TH/MM3 (0-0.9) 1.1 TH/MM3 (0-0.9) Neutrophils % (Manual) 84 % (16-70) Lymphocytes % 6 % (9-44) Neutrophils # (Manual) 12.1 TH/MM3 (1.8-7.7) Myelocytes 2 % (0-0) Toxic Granulation 1+ (NORMAL) Platelet Estimate HIGH (NORMAL) HIGH (NORMAL) Erythrocyte Sedimentation Rate 107 mm/hr (0-20) Random Glucose 171 MG/DL (74-106) 132 MG/DL (74-106) Albumin 1.9 GM/DL (3.4-5.0) Calcium Level 7.5 MG/DL (8.5-10.1) 8.1 MG/DL (8.5-10.1) Potassium Level 3.4 MEQ/L (3.5-5.1) Estimat Glomerular Filtration Rate 86 ML/MIN (>89) C-Reactive Protein 18.00 MG/DL (0.00-0.30) Urine Ketones TRACE mg/dL (NEG) Test 04/22/17 08:43 PE at Discharge GENERAL: This is a well-nourished, well-developed patient, in no apparent distress. SKIN: No rashes, ecchymoses or lesions. Cool and dry. HEAD: Atraumatic. Normocephalic. No temporal or scalp tenderness. EYES: Pupils equal round and reactive. Extraocular motions intact. No scleral icterus. No injection or drainage. ENT: Nose without bleeding, purulent drainage or septal hematoma. Throat without erythema, tonsillar hypertrophy or exudate. Uvula midline. Airway patent. NECK: Trachea midline. No JVD or lymphadenopathy. Supple, nontender, no meningeal signs. CARDIOVASCULAR: Regular rate and rhythm without murmurs, gallops, or rubs. RESPIRATORY: Clear to auscultation. Breath sounds equal bilaterally. No wheezes , rales, or rhonchi. GASTROINTESTINAL: Abdomen soft, non-tender, BS + MUSCULOSKELETAL: Extremities without clubbing, cyanosis, or edema. No joint tenderness, effusion, or edema noted. No calf tenderness. Negative Homans sign bilaterally. NEUROLOGICAL: Awake and alert. Cranial nerves II through XII intact. Motor and sensory grossly within normal limits. Five out of 5 muscle strength in all muscle groups. Normal speech. Hospital Course Admitted on for several days of fever. He had been seeing urologist for epididymis and was on Levaquin then switched to Doxycycline. During his stay ID was consulted for persistent fevers.Scrotal US show epididymis infection. CT of abdomen completed on 04/18 identifying no source of infection. He complained of Headache CT of head negative. CXR negative Urinalysis negative. Antibiotics changed from Zosyn, to Vanco to Rocephin with continued fevers, highest documented at 101.4, and highest WBC 13.0. Workup completed it was determined that continued fevers were likely caused by Rheumatica. He is d/ c home with instruction to Follow up with ID and [facility]. Pt Condition on Discharge: Stable Discharge Disposition: Discharge Home Discharge Instructions DIET: Follow Instructions for: As Tolerated, No Restrictions Speech Therapy-Diet Recommenda: Regular Activities you can perform: Regular-No Restrictions Jessica Wilkins Apr 23, 2017 18:37
== END 2017-04-23 11:10 | disposition home or self-care (01) ==
LOC: PHED 22:16 → PHEDA 04-19 00:51 → PH3A 04-19 01:29 → PH3B 04-21 15:20
PROVIDERS: ADMIT Family Medicine; ATTEND Family Medicine
DX: N50.3 Cyst of epididymis (principal); R50.9 Fever, unspecified; A41.9 Sepsis, unspecified organism; E87.6 Hypokalemia; N28.1 Cyst of kidney, acquired; N45.1 Epididymitis; K59.00 Constipation, unspecified; K57.30 Diverticulosis of large intestine without perforation or abscess without bleeding
CPT/HCPCS: 70450; 71045; 74177; 76870; 80048; 80053; 81001; 83605; 83690; 85025; 85027; 85652; 86140; 86430; 86703; 87040; 87804; 93306; 93975; 96361; 96365; 96366; 96375; 96376; 99285; G0103; G0378; J0696; J2270; J2543; Q9967; 85007